=== PATIENT | female | born 1930 | race Caucasian/White ===

== ENCOUNTER 2017-02-14 11:05 | Inpatient (IN) | payer MEDICARE, BC ==
[2017-02-14] MEDS ORDERED: Docusate Sodium 100 MG Cap PO PRN (11:11)
[2017-02-14] MEDS ORDERED: Acetaminophen 325 MG Tab PO PRN (11:11)
[2017-02-14] MEDS ORDERED: Magnesium Hydroxide 400 MG/5 ML Susp 30 ML Cup PO PRN (11:11)
[2017-02-14] MEDS ORDERED: Sodium Chloride 0.9% 10 ML Syringe FLUSH PRN (11:11)
[2017-02-14] MEDS ORDERED: Temazepam 15 MG Cap PO PRN (11:11)
[2017-02-14] MEDS ORDERED: Iopamidol 755 Mg/ML 100 ML Bottle IVPUSH ONE (11:54)
[2017-02-14] MEDS ORDERED: Polyvinyl Alcohol 1.4% Ophth Soln 15 ML Bottle EYEBOTH PRN (12:18)
[2017-02-14 12:27] LABS: CHLORIDE,CL 103 mEq/L (98-106); SODIUM,NA 139 mEq/L (136-145)
[2017-02-14] MEDS: Enoxaparin 30 MG/0.3 ML Syringe SUBCUT SCH (13:45)
[2017-02-15] MEDS: Levothyroxine 50 MCG Tab PO SCH (07:40)
[2017-02-15] MEDS: Enoxaparin 30 MG/0.3 ML Syringe SUBCUT SCH (07:41)
[2017-02-15] MEDS: Losartan 25 MG Tab PO SCH (07:42)
[2017-02-15] MEDS: Atenolol 50 MG Tab PO SCH (07:44)
[2017-02-15] MEDS ORDERED: Aspirin 325 MG Tab.EC PO SCH (08:00)
[2017-02-15] MEDS ORDERED: Aspirin/Dipyridamole 200-25 MG Cap.ER PO SCH (14:00)
[2017-02-16] MEDS: Levothyroxine 50 MCG Tab PO SCH (06:53)
--- NOTE | 2017-02-16 07:13 | PN ---
DATE: 02/15/2017 This is an elderly female, who came in yesterday ataxic with a diagnosis of question CVA, TIA. 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 CTA looked okay and little bit of blockage, so I suspect that she has maybe got little thromboembolic phenomenon. I am going to start her on a little bit of Aggrenox just once a day. Keep her at physical therapy. Otherwise, exam today, neck was supple. Chest clear. Cardiac regular. MARQUES/ROSANNA /[id number]
[2017-02-16] MEDS ORDERED: Aspirin/Dipyridamole 200-25 MG Cap.ER PO SCH (08:00)
[2017-02-16] MEDS: Losartan 25 MG Tab PO SCH (08:03)
[2017-02-16] MEDS: Atenolol 50 MG Tab PO SCH (08:04)
[2017-02-16] MEDS: Enoxaparin 30 MG/0.3 ML Syringe SUBCUT SCH (08:04)
[2017-02-16 11:56] VITALS: BP 141/58
--- NOTE | 2017-02-19 07:58 | DISCH ---
HOSPITAL COURSE: This is an 87-year-old white female, who came in with ataxia, probable TIA. She was started on Lovenox, responded fairly nicely. At the time of discharge, she was back to normal according to her daughter, still little difficulty with ambulating, but was much improved. I did do a CT of the head which showed old infarcts. CTA looked okay other than some mild carotid plaquing. Lab was basically all normal and she had an elevated TSH, but her T4 was normal, so we will follow that as an outpatient. DISPOSITION: The patient was discharged home. We will see her back 02/20. DISCHARGE MEDICATIONS: Home medications minus the aspirin plus Aggrenox 225 one daily. DISCHARGE DIAGNOSIS: 1. TRANSIENT ISCHEMIC ATTACK. 2. HYPOTHYROIDISM. 3. HYPERTENSION. 4. DEMENTIA. MARQUES/ROSANNA /[id number]
== END 2017-02-16 13:15 | disposition home or self-care (01) | DRG 69 ==
LOC: UNDOADMIN 11:05 → CC.MS 11:05
PROVIDERS: ADMIT General Practice; ATTEND General Practice
DX: G45.9 Transient cerebral ischemic attack, unspecified (principal); E03.9 Hypothyroidism, unspecified; I10 Essential (primary) hypertension; F03.90 Unspecified dementia, unspecified severity, without behavioral disturbance, psychotic disturbance, mood disturbance, and anxiety; R27.0 Ataxia, unspecified; Z88.1 Allergy status to other antibiotic agents; Z88.2 Allergy status to sulfonamides; Z88.8 Allergy status to other drugs, medicaments and biological substances; Z91.040 Latex allergy status; Z79.82 Long term (current) use of aspirin; Z79.899 Other long term (current) drug therapy; E78.5 Hyperlipidemia, unspecified; M19.90 Unspecified osteoarthritis, unspecified site; I50.9 Heart failure, unspecified; Z86.73 Personal history of transient ischemic attack (TIA), and cerebral infarction without residual deficits
CPT/HCPCS: 36415; 70450; 70496; 70498; 71020; 80053; 81001; 83735; 83880; 84439; 84443; 85025; 85379; 85610; 86140; 93005; 97110-GP; 97161-GP; A9270-GY; J1650; Q9967

== ENCOUNTER 2017-08-19 12:40 | Observation (INO) | payer MEDICARE, BC ==
[2017-08-19 13:51] LABS: CHLORIDE,CL 99 mEq/L (98-106); SODIUM,NA 136 mEq/L (136-145)
--- NOTE | 2017-08-19 14:38 | EDM.PDOC ---
ED HPI GENERAL MEDICAL PROBLEM - General Chief Complaint: General Stated Complaint: lightheaded, vomiting Time Seen by Provider: 08/19/17 13:30 Source of Information: Reports: Patient, Family (daughter) History Limitations: Reports: No Limitations - History of Present Illness INITIAL COMMENTS - FREE TEXT/NARRATIVE: Kassandra is an 87 yo female who presents to the ER for concerns of lightheaded/ dizziness. Her daughter is present with her and states she had an uneventful morning and was feeling well. They had people over for breakfast around 10 am and after they left around 1130 she went to help Kassandra to the restroom. She started complaining of dizziness and became weak. She was able to sit her down but then started to vomit. She admits to symptoms similar in the past and ended up having to go to physical therapy. She states if she holds her head still she doesn't get the dizziness. She denies any neurological symptoms. No blurry vision, headaches, etc... She states currently she does not feel nauseated unless she moves her head. Daughter is concerned as she doesn't feel she is able to help her at home. daughter also states she has a chronic history of UTI' s that they are usually unaware of that she has, so she has been on daily Macrobid. Onset: Today, Sudden Onset Date: 08/19/17 Onset Time: 11:30 Duration: Waxing/Waning Location: Reports: Head, Generalized Associated Symptoms: Reports: Nausea/Vomiting, Weakness. Denies: Chest Pain, Cough, cough w sputum, Headaches, Seizure, Syncope - Related Data Allergies Allergy/AdvReac Type Severity Reaction Status Date / Time doxazosin [From Cardura] Allergy Unknown Rash Verified 05/24/17 13:07 latex Allergy Rash Verified 05/24/17 13:07 morphine Allergy Rash Verified 05/24/17 13:07 sulfamethoxazole Allergy Rash Verified 05/24/17 13:07 [From Bactrim] trimethoprim [From Bactrim] Allergy Rash Verified 05/24/17 13:07 Home Meds: Home Meds Acetaminophen [Tylenol Extra Strength] 1 tab PO Q6HR PRN 03/28/14 [History] Carboxymethylcellulose Sodium [Refresh Tears 0.5%] 1 drop OP DAILY PRN 03/28/14 [History] Cholecalciferol (Vitamin D3) [Vitamin D3] 2,000 units PO DAILY 03/28/14 [History ] Levothyroxine 100 mcg PO DAILY 03/28/14 [History] Losartan [Cozaar] 100 mg PO DAILY 03/28/14 [History] Vit A/Vit C/Vit E/Zinc/Copper [Preservision] 1 tab PO DAILY 03/28/14 [History] Aspirin/Dipyridamole [Aggrenox 200-25 MG] 1 cap PO DAILY #30 cap.er 02/16/17 [Rx ] Amiodarone [Cordarone] 100 mg PO DAILY 08/19/17 [History] Docusate Sodium [Colace] 100 mg PO BID 08/19/17 [History] Nitrofurantoin [place]/Macrocryst [Macrobid] 100 mg PO DAILY 08/19/17 [History] hydrALAZINE [Apresoline] 25 mg PO BID 08/19/17 [History] Past Medical History HEENT History: Reports: Cataract, Impaired Vision Respiratory History: Reports: None Other Gastrointestinal History: LACTOSE INTOLERANT Genitourinary History: Reports: UTI, Recurrent Musculoskeletal History: Reports: Arthritis, Osteoarthritis Neurological History: Reports: CVA - Past Surgical History Other HEENT Surgeries/Procedures: HYSTERECTOMY. CABBAGE X3 2 YEARS AGO GI Surgical History: Reports: None Neurological Surgical History: Reports: None Musculoskeletal Surgical History: Reports: Knee Replacement Social & Family History - Family History Hematologic: Reports: None - Tobacco Use Smoking Status *Q: Never Smoker Second Hand Smoke Exposure: Yes - Caffeine Use Caffeine Use: Reports: Coffee - Alcohol Use Days Per Week of Alcohol Use: 0 - Recreational Drug Use Recreational Drug Use: No ED ROS GENERAL - Review of Systems Review Of Systems: See Below Constitutional: Reports: Weakness. Denies: Fever, Chills, Decreased Appetite HEENT: Reports: Vertigo. Denies: Ear Pain, Sinus Problem, Vision Change Respiratory: Reports: No Symptoms Cardiovascular: Reports: Lightheadedness. Denies: Chest Pain, Palpitations, Syncope GI/Abdominal: Reports: No Symptoms : Reports: No Symptoms Neurological: Reports: Dizziness, Difficulty Walking. Denies: Confusion, Headache, Paresthesia, Seizure, Syncope, Trouble Speaking, Change in Speech Psychiatric: Reports: No Symptoms ED EXAM, GENERAL - Physical Exam Exam: See Below Exam Limited By: No Limitations General Appearance: Alert, Mild Distress Eye Exam: Bilateral Eye: EOMI, Normal Inspection, PERRL Ears: Normal External Exam, Normal Canal, Hearing Grossly Normal, Normal TMs Ear Exam: Right Ear: Other (Positive [place] Montes-pike maneuver test R>L) Nose: Normal Inspection, Normal Mucosa, No Blood Throat/Mouth: Normal Inspection, Normal Lips, Normal Teeth, Normal Gums, Normal Oropharynx, Normal Voice, No Airway Compromise Head: Atraumatic, Normocephalic Neck: Normal Inspection, Supple, Non-Tender, Full Range of Motion Respiratory/Chest: No Respiratory Distress, Lungs Clear, Normal Breath Sounds, No Accessory Muscle Use Cardiovascular: Normal Peripheral Pulses, Regular Rate, Rhythm, No Edema, No Murmur GI/Abdominal: Normal Bowel Sounds, Soft, Non-Tender, No Organomegaly, No Distention, No Mass Extremities: Normal Inspection, No Pedal Edema, Normal Capillary Refill Neurological: Alert, Oriented, CN II-XII Intact, Normal Cognition, No Motor/ Sensory Deficits Psychiatric: Normal Affect, Normal Mood Skin Exam: Warm, Dry, Intact, Normal Color, No Rash EKG INTERPRETATION EKG Date: 08/19/17 Rhythm: NSR Comparison: NA - No Prior EKG Course - Vital Signs Last Recorded V/S: Last Vital Signs Temp 96.1 F 08/19/17 14:19 Pulse 70 08/19/17 14:19 Resp 18 08/19/17 14:19 BP 161/62 H 08/19/17 14:19 Pulse Ox 98 08/19/17 14:19 - Orders/Labs/Meds Orders: Active Orders 24 hr Category Date Time Status UA W/MICROSCOPIC [URIN] Stat Lab 08/19/17 13:08 Uncollected Labs: Laboratory Tests 08/19/17 08/19/17 Range/Units 13:15 13:15 WBC 9.3 (5.0-10.0) 10^3/uL RBC 3.58 L (4.00-5.50) 10^6/uL Hgb 11.6 L (12.0-16.0) g/dL Hct 34.1 L (37.0-47.0) % MCV 95.3 H (82.0-94.0) fL MCH 32.4 H (27.0-32.0) pg MCHC 34.0 (33.0-38.0) g/dL RDW Coeff of Gina 14.1 (11.0-15.0) % Plt Count 231 (150-400) 10^3/uL Neut % (Auto) 52.1 (35-85) % Lymph % (Auto) 35.1 (10-55) % [place] % (Auto) 11.3 (0-16) % Eos % (Auto) 1.3 (0-5) % Baso % (Auto) 0.2 (0-3) % Neut # (Auto) 4.86 (1.80-7.00) 10^3/uL Lymph # (Auto) 3.28 (1.00-4.80) 10^3/uL [place] # (Auto) 1.06 H (0.00-0.80) 10^3/uL Eos # (Auto) 0.12 (0.00-0.45) 10^3/uL Baso # (Auto) 0.02 10^3/uL Sodium 136 (136-145) mEq/L Potassium 4.0 (3.5-5.0) mEq/L Chloride 99 (98-106) mEq/L Carbon Dioxide 24 (21-32) mmol/L BUN 24 H (7-18) mg/dL Creatinine 1.5 H (0.6-1.0) mg/dL Est Cr Clr Drug Dosing 21.86 mL/min Estimated GFR (MDRD) 33 L (>=60) mL/min Glucose 108 H (75-99) mg/dL Calcium 9.4 (8.4-10.1) mg/dL Magnesium 2.2 (1.8-2.4) mg/dL Total Bilirubin 0.4 (0.0-1.0) mg/dL AST 17 (15-37) U/L ALT 22 (12-78) U/L Alkaline Phosphatase 48 (46-116) U/L C-Reactive Protein < 0.2 L (0.2-0.8) mg/dL Total Protein 6.9 (6.4-8.2) g/dL Albumin 3.6 (3.4-5.0) g/dL Amylase 159 H (25-115) U/L Departure - Departure Time of Disposition: 14:42 Disposition: Refer to Observation Clinical Impression: Elevated amylase Benign paroxysmal positional vertigo Qualifiers: Laterality: right Qualified Code(s): H81.11 - Benign paroxysmal vertigo, right ear - Discharge Information - Problem List & Annotations (1) Benign paroxysmal positional vertigo SNOMED Code(s): 695453118 Code(s): H81.10 - BENIGN PAROXYSMAL VERTIGO, UNSPECIFIED EAR Status: Acute Current Visit: Yes Qualifiers: Laterality: right Qualified Code(s): H81.11 - Benign paroxysmal vertigo, right ear (2) Elevated amylase SNOMED Code(s): 368319779 Code(s): R74.8 - ABNORMAL LEVELS OF OTHER SERUM ENZYMES Status: Acute Current Visit: Yes - Problem List Review Problem List Initiated/Reviewed/Updated: Yes - My Orders Last 24 Hours: My Active Orders 08/19/17 13:08 UA W/MICROSCOPIC [URIN] Stat - Assessment/Plan Admission H&P: Please use this note as an admission H&P Last 24 Hours: My Active Orders 08/19/17 13:08 UA W/MICROSCOPIC [URIN] Stat Plan: Will admit to Dr. Snell's services under observation. Dr. Snell aware of admission. Will start IV fluids, meclizine and zofran. PT to evaluate and treat with canalith repositioning in am. Will put on continuous telemetry. Kassandra and her daughter verbalized understanding. Will obtain Lipase d/t mildly elevated amylase.
[2017-08-19] MEDS ORDERED: Ondansetron 4 MG/2 ML SDV IV PRN (14:59)
[2017-08-19] MEDS ORDERED: Ondansetron 4 MG Tab.DIS PO PRN (14:59)
[2017-08-19] MEDS ORDERED: Acetaminophen 325 MG Tab PO PRN (14:59)
[2017-08-19] MEDS ORDERED: DOCUSATE SODIUM 100 MG PO PRN (14:59)
[2017-08-19] MEDS ORDERED: Temazepam 15 MG Cap PO PRN (14:59)
[2017-08-19] MEDS ORDERED: Meclizine 12.5 MG Tab PO PRN (14:59)
[2017-08-19] MEDS: Sodium Chloride 0.9% 1,000 ML IV SCH (15:56)
[2017-08-19] MEDS: HYDRALAZINE 25 MG PO SCH (19:31)
[2017-08-19] MEDS: Enoxaparin 30 MG/0.3 ML Syringe SUBCUT SCH (19:32)
[2017-08-20] MEDS: Sodium Chloride 0.9% 1,000 ML IV SCH ×2 (01:26→17:34)
[2017-08-20] MEDS: DIPYRIDAMOLE PO SCH (07:28)
[2017-08-20] MEDS: HYDRALAZINE 25 MG PO SCH ×2 (07:28→20:01)
[2017-08-20] MEDS: ASPIRIN PO SCH (07:28)
[2017-08-20] MEDS: AMIODARONE 200 MG PO SCH (07:28)
[2017-08-20] MEDS: LOSARTAN 100 MG PO SCH (07:29)
[2017-08-20] MEDS ORDERED: Simvastatin 20 MG Tab PO SCH (08:00)
[2017-08-20] MEDS: MACROCRYSTALLINE PO SCH (08:26)
[2017-08-20] MEDS: NITROFURANTOIN MONOHYDRATE PO SCH (08:26)
[2017-08-20] MEDS: LEVOTHYROXINE 100 MCG PO SCH (08:26)
[2017-08-20] MEDS ORDERED: ROSUVASTATIN 5 MG PO SCH (08:53)
[2017-08-20] MEDS: Enoxaparin 30 MG/0.3 ML Syringe SUBCUT SCH (20:01)
--- NOTE | 2017-08-20 21:01 | PCM.PN ---
- General Info Date of Service: 08/20/17 Admission Dx/Problem (Free Text): BPPV Functional Status: Reports: Pain Controlled, Tolerating Diet, Ambulating - Review of Systems General: Reports: Weakness. Denies: Fever, Fatigue HEENT: Denies: Ear Pain, Sinus Congestion, Rhinitis Pulmonary: Denies: Shortness of Breath, Cough, Sputum Cardiovascular: Denies: Chest Pain, Edema, Lightheadedness Gastrointestinal: Reports: Decreased Appetite, Nausea. Denies: Vomiting Genitourinary: Reports: No Symptoms Musculoskeletal: Reports: No Symptoms Skin: Reports: No Symptoms Neurological: Reports: Dizziness - Patient Data Vitals - Most Recent: Last Vital Signs Temp 97.8 F 08/20/17 20:00 Pulse 78 08/20/17 20:00 Resp 18 08/20/17 20:00 BP 156/70 H 08/20/17 20:01 Pulse Ox 98 08/20/17 20:00 Weight - Most Recent: 160 lb I&O - Last 24 Hours: Intake & Output 08/20/17 08/20/17 08/20/17 06:59 14:59 22:59 Intake Total 713 1000 Balance 713 1000 Lab Results Last 24 Hours: Laboratory Results - last 24 hr 08/20/17 08/20/17 08/20/17 Range/Units 07:00 07:00 09:02 WBC 6.7 (5.0-10.0) 10^3/uL RBC 3.54 L (4.00-5.50) 10^6/uL Hgb 11.4 L (12.0-16.0) g/dL Hct 34.2 L (37.0-47.0) % MCV 96.6 H (82.0-94.0) fL MCH 32.2 H (27.0-32.0) pg MCHC 33.3 (33.0-38.0) g/dL RDW Coeff of Gina 13.7 (11.0-15.0) % Plt Count 205 (150-400) 10^3/uL Neut % (Auto) 60.8 (35-85) % Lymph % (Auto) 29.3 (10-55) % [place] % (Auto) 8.4 (0-16) % Eos % (Auto) 1.2 (0-5) % Baso % (Auto) 0.3 (0-3) % Neut # (Auto) 4.04 (1.80-7.00) 10^3/uL Lymph # (Auto) 1.95 (1.00-4.80) 10^3/uL [place] # (Auto) 0.56 (0.00-0.80) 10^3/uL Eos # (Auto) 0.08 (0.00-0.45) 10^3/uL Baso # (Auto) 0.02 10^3/uL Sodium 138 (136-145) mEq/L Potassium 3.9 (3.5-5.0) mEq/L Chloride 103 (98-106) mEq/L Carbon Dioxide 25 (21-32) mmol/L BUN 22 H (7-18) mg/dL Creatinine 1.4 H (0.6-1.0) mg/dL Est Cr Clr Drug Dosing 23.42 mL/min Estimated GFR (MDRD) 36 L (>=60) mL/min Glucose 98 (75-99) mg/dL Calcium 8.8 (8.4-10.1) mg/dL Amylase 118 H (25-115) U/L Urine Color Yellow (YELLOW) Urine Appearance Clear (CLEAR) Urine pH 7.0 (4.5-8.0) Ur Specific [place] 1.015 (1.003-1.020) Urine Protein Negative (NEGATIVE) mg/dL Urine Glucose (UA) Negative (NEGATIVE) mg/dL Urine Ketones Negative (NEGATIVE) mg/dL Urine Occult Blood Negative (NEGATIVE) Urine Nitrite Negative (NEGATIVE) Urine Bilirubin Negative (NEGATIVE) Urine Urobilinogen 0.2 (0.2-1.0) EU/dL Ur Leukocyte Esterase Negative (NEGATIVE) Urine RBC Not seen (0-5) /HPF Urine WBC 0-5 (0-5) /HPF Ur Squamous Epith Cells Occasional H (NOT SEEN) /HPF Med Orders - Current: Current Medications Acetaminophen (Tylenol) 650 mg PO Q4H PRN PRN Reason: Pain (Mild 1-3)/fever Amiodarone HCl (Cordarone) 100 mg PO DAILY [facility] Last Admin: 08/20/17 07:28 Dose: 100 mg Dipyridamole/Aspirin (Aggrenox 200-25 Mg) 1 cap PO DAILY [facility] Last Admin: 08/20/17 07:28 Dose: 1 cap Docusate Sodium (Colace) 100 mg PO BID PRN PRN Reason: Constipation Enoxaparin Sodium (Lovenox) 30 mg SUBCUT BEDTIME [facility] Last Admin: 08/20/17 20:01 Dose: 30 mg Hydralazine HCl (Apresoline) 25 mg PO BID [facility] Last Admin: 08/20/17 20:01 Dose: 25 mg Sodium Chloride (Normal Saline) 1,000 mls @ 75 mls/hr IV ASDIRECTED [facility] Last Admin: 08/20/17 17:34 Dose: 75 mls/hr Levothyroxine Sodium (Synthroid) 100 mcg PO ACBREAKFAST [facility] Last Admin: 08/20/17 08:26 Dose: 100 mcg Losartan Potassium (Cozaar) 100 mg PO DAILY [facility] Last Admin: 08/20/17 07:29 Dose: 100 mg Meclizine HCl (Antivert) 25 mg PO Q6H PRN PRN Reason: Dizziness Last Admin: 08/19/17 15:56 Dose: 25 mg Nitrofurantoin Macrocrystals (Macrobid) 100 mg PO DAILY [facility] Last Admin: 08/20/17 08:26 Dose: 100 mg Ptom - Rosuvastatin (5mg Tab) 0 each PO DAILY [facility] Ondansetron HCl (Zofran) 4 mg IV Q4H PRN PRN Reason: Nausea/Vomiting Ondansetron HCl (Zofran Odt) 4 mg PO Q4H PRN PRN Reason: nausea, able to take PO Temazepam (Restoril) 15 mg PO BEDTIME PRN PRN Reason: Sleep Discontinued Medications Simvastatin (Zocor) 20 mg PO DAILY [facility] Last Admin: 08/20/17 08:57 Dose: Not Given - Exam General: Alert, Oriented (person and place) HEENT: Mucous Membr. Moist/[place] Neck: Supple Lungs: Clear to Auscultation, Normal Respiratory Effort Cardiovascular: Regular Rate, Regular Rhythm GI/Abdominal Exam: Normal Bowel Sounds, Soft, Non-Tender Extremities: Normal Inspection, No Pedal Edema Skin: Warm, Dry Neurological: No New Focal Deficit - Problem List & Annotations (1) Benign paroxysmal positional vertigo SNOMED Code(s): 344274823 Code(s): H81.10 - BENIGN PAROXYSMAL VERTIGO, UNSPECIFIED EAR Status: Acute Priority: High Current Visit: Yes Qualifiers: Laterality: right Qualified Code(s): H81.11 - Benign paroxysmal vertigo, right ear (2) Dementia SNOMED Code(s): 33115336 Code(s): F03.90 - UNSPECIFIED DEMENTIA WITHOUT BEHAVIORAL DISTURBANCE Status: Chronic Priority: High Current Visit: Yes - Problem List Review Problem List Initiated/Reviewed/Updated: Yes - Assessment Assessment:: BPPV Dementia - Plan Plan:: Patient doing better today. Does note mild dizziness with head movements and getting up to the bathroom but daughter states not nearly as severe as yesterday. She has not had any vomiting this am. Not eating much for breakfast this am, admits to mild nausea but daughter relates she does not tolerate much for breakfast usually and eats over a 90 minute period. Labs normal this am. Will proceed with canalith repositioning this am with PT. IF tolerates and improves, will discharge in am.
[2017-08-21] MEDS: LEVOTHYROXINE 100 MCG PO SCH (06:37)
[2017-08-21] MEDS: LOSARTAN 100 MG PO SCH (07:35)
[2017-08-21] MEDS: ASPIRIN PO SCH (07:36)
[2017-08-21] MEDS: MACROCRYSTALLINE PO SCH (07:36)
[2017-08-21] MEDS: AMIODARONE 200 MG PO SCH (07:36)
[2017-08-21] MEDS: DIPYRIDAMOLE PO SCH (07:36)
[2017-08-21] MEDS: NITROFURANTOIN MONOHYDRATE PO SCH (07:36)
[2017-08-21] MEDS: HYDRALAZINE 25 MG PO SCH (07:37)
[2017-08-21 08:42] VITALS: BP 143/60
--- NOTE | 2017-08-21 21:47 | PCM.DCSUM1 ---
Discharge Summary - Hospital Course Free Text/Narrative:: Patient presented to ED with increased dizziness, vomiting. Patient had been fine throughout the morning, ate breakfast and was doing well. AFter their company had left, her daughter was assisting her to the bathroom when she became very dizzy and started vomiting. Has had a history of vertigo in the past. Symptoms persisted so felt she needed work up. Labs done in the ER essentially negative. - Discharge Data Discharge Date: 08/21/17 Discharge Disposition: Home, Self-Care 01 Condition: Good - Discharge Diagnosis/Problem(s) (1) Benign paroxysmal positional vertigo SNOMED Code(s): 322134877 ICD Code: H81.10 - BENIGN PAROXYSMAL VERTIGO, UNSPECIFIED EAR Status: Acute Priority: High Qualifiers: Laterality: right Qualified Code(s): H81.11 - Benign paroxysmal vertigo, right ear (2) Dementia SNOMED Code(s): 29861170 ICD Code: F03.90 - UNSPECIFIED DEMENTIA WITHOUT BEHAVIORAL DISTURBANCE Status: Chronic Priority: High - Patient Summary/Data Complications: none Hospital Course: Patient had uneventful stay. She continued to have the dizziness and vomiting during the first evening of admission. Did settle through the night and felt better by morning. Patient did have canalith repositioning done by PT and had improvement of her symptoms. Did refuse to wear the soft collar after procedure but overall has continued to do well. Appetite did improve, eating well. Ambulating per her norm with the walker and her daughter at her side. - Patient Instructions Diet: Usual Diet as Tolerated Activity: As Tolerated - Discharge Plan Prescriptions/Med Rec: Meclizine [Antivert] 25 mg PO Q6H PRN #30 tablet PRN Reason: Dizziness Home Medications: Home Meds Acetaminophen [Tylenol Extra Strength] 1 tab PO Q6HR PRN 03/28/14 [History] Carboxymethylcellulose Sodium [Refresh Tears 0.5%] 1 drop OP DAILY PRN 03/28/14 [History] Cholecalciferol (Vitamin D3) [Vitamin D3] 2,000 units PO DAILY 03/28/14 [History ] Levothyroxine 100 mcg PO DAILY 03/28/14 [History] Losartan [Cozaar] 100 mg PO DAILY 03/28/14 [History] Vit A/Vit C/Vit E/Zinc/Copper [Preservision] 1 tab PO DAILY 03/28/14 [History] Aspirin/Dipyridamole [Aggrenox 200-25 MG] 1 cap PO DAILY #30 cap.er 02/16/17 [Rx ] Amiodarone [Cordarone] 100 mg PO DAILY 08/19/17 [History] Docusate Sodium [Colace] 100 mg PO BID 08/19/17 [History] Nitrofurantoin [place]/Macrocryst [Macrobid] 100 mg PO DAILY 08/19/17 [History] Rosuvastatin Calcium 5 mg PO BEDTIME 08/19/17 [History] hydrALAZINE [Apresoline] 25 mg PO BID 08/19/17 [History] Meclizine [Antivert] 25 mg PO Q6H PRN #30 tablet 08/21/17 [Rx] Patient Handouts: Benign Positional Vertigo Forms: ED Department Discharge Referrals: Sarmad Burroughs MD [Primary Care Provider] - (Dr. Burroughs in 10 days ) - Discharge Summary/Plan Comment DC Time >30 min.: No Discharge Summary/Plan Comment: Discharge home Will continue to use Meclizine as needed Daughter assists with care - General Info Date of Service: 08/21/17 Admission Dx/Problem (Free Text: BPPV Functional Status: Reports: Pain Controlled, Tolerating Diet, Ambulating - Review of Systems General: Denies: Fever, Weakness, Fatigue, Malaise HEENT: Reports: No Symptoms Pulmonary: Denies: Shortness of Breath, Cough, Wheezing Cardiovascular: Denies: Chest Pain, Edema, Lightheadedness Gastrointestinal: Denies: Abdominal Pain, Nausea, Vomiting Genitourinary: Reports: No Symptoms Musculoskeletal: Reports: No Symptoms Neurological: Reports: Confusion, Dizziness Psychiatric: Reports: Confusion - Patient Data Vitals - Most Recent: Last Vital Signs Temp 97.5 F 08/21/17 08:00 Pulse 82 08/21/17 08:00 Resp 16 08/21/17 08:00 BP 143/60 H 08/21/17 08:00 Pulse Ox 95 08/21/17 08:00 Weight - Most Recent: 160 lb Lab Results - Last 24 hrs: Laboratory Results - last 24 hr 08/19/17 08/21/17 Range/Units 18:30 07:25 Sodium 138 (136-145) mEq/L Potassium 3.8 (3.5-5.0) mEq/L Chloride 104 (98-106) mEq/L Carbon Dioxide 25 (21-32) mmol/L BUN 18 (7-18) mg/dL Creatinine 1.2 H (0.6-1.0) mg/dL Est Cr Clr Drug Dosing 27.32 mL/min Estimated GFR (MDRD) 42 L (>=60) mL/min Glucose 98 (75-99) mg/dL Calcium 8.5 (8.4-10.1) mg/dL Amylase 108 (25-115) U/L Lipase 16 (11-82) U/L Med Orders - Current: Current Medications Discontinued Medications Acetaminophen (Tylenol) 650 mg PO Q4H PRN PRN Reason: Pain (Mild 1-3)/fever Amiodarone HCl (Cordarone) 100 mg PO DAILY [facility] Last Admin: 08/21/17 07:36 Dose: 100 mg Dipyridamole/Aspirin (Aggrenox 200-25 Mg) 1 cap PO DAILY [facility] Last Admin: 08/21/17 07:36 Dose: 1 cap Docusate Sodium (Colace) 100 mg PO BID PRN PRN Reason: Constipation Enoxaparin Sodium (Lovenox) 30 mg SUBCUT BEDTIME [facility] Last Admin: 08/20/17 20:01 Dose: 30 mg Hydralazine HCl (Apresoline) 25 mg PO BID [facility] Last Admin: 08/21/17 07:37 Dose: 25 mg Sodium Chloride (Normal Saline) 1,000 mls @ 75 mls/hr IV ASDIRECTED [facility] Last Admin: 08/20/17 17:34 Dose: 75 mls/hr Levothyroxine Sodium (Synthroid) 100 mcg PO ACBREAKFAST [facility] Last Admin: 08/21/17 06:37 Dose: 100 mcg Losartan Potassium (Cozaar) 100 mg PO DAILY [facility] Last Admin: 08/21/17 07:35 Dose: 100 mg Meclizine HCl (Antivert) 25 mg PO Q6H PRN PRN Reason: Dizziness Last Admin: 08/19/17 15:56 Dose: 25 mg Nitrofurantoin Macrocrystals (Macrobid) 100 mg PO DAILY [facility] Last Admin: 08/21/17 07:36 Dose: 100 mg Ptom - Rosuvastatin (5mg Tab) 0 each PO DAILY [facility] Last Admin: 08/21/17 07:36 Dose: 1 each Ondansetron HCl (Zofran) 4 mg IV Q4H PRN PRN Reason: Nausea/Vomiting Ondansetron HCl (Zofran Odt) 4 mg PO Q4H PRN PRN Reason: nausea, able to take PO Simvastatin (Zocor) 20 mg PO DAILY [facility] Last Admin: 08/20/17 08:57 Dose: Not Given Temazepam (Restoril) 15 mg PO BEDTIME PRN PRN Reason: Sleep - Exam General: Reports: Alert, Oriented HEENT: Reports: Mucous Membr. Moist/[place] Neck: Reports: Supple Lungs: Reports: Clear to Auscultation, Normal Respiratory Effort Cardiovascular: Reports: Regular Rate, Regular Rhythm GI/Abdominal Exam: Normal Bowel Sounds, Soft, Non-Tender Extremities: Normal Inspection, No Pedal Edema Skin: Reports: Warm, Dry Neurological: Reports: No New Focal Deficit *Q Meaningful Use (DIS) - VTE *Q VTE Criteria *Q: - Stroke *Q Stroke Criteria *Q: - AMI *Q AMI Criteria *Q:
== END 2017-08-21 09:40 | disposition home or self-care (01) ==
LOC: CC.ED 12:40 → CC.MS 14:08 → UNDOADMOB 14:08 → CC.MS 14:59
PROVIDERS: ADMIT Physician Assistant Medical; ATTEND Family Medicine
DX: H81.11 Benign paroxysmal vertigo, right ear (principal); F03.90 Unspecified dementia, unspecified severity, without behavioral disturbance, psychotic disturbance, mood disturbance, and anxiety; R74.8 Abnormal levels of other serum enzymes; Z79.82 Long term (current) use of aspirin; Z79.899 Other long term (current) drug therapy; Z88.1 Allergy status to other antibiotic agents; Z88.2 Allergy status to sulfonamides; Z88.8 Allergy status to other drugs, medicaments and biological substances; Z91.040 Latex allergy status
CPT/HCPCS: 36415; 80048; 80053; 81001; 82150; 83690; 83735; 85025; 86140; 93005; 96360; 96361; 96372; 97112; 97161; 99285; A9270; G0378; J1650; J7030; 93010; 99217; 99220; 99225

== ENCOUNTER 2017-09-26 14:25 | Emergency (ER) | payer MEDICARE, BC ==
[2017-09-26 15:55] LABS: CHLORIDE,CL 100 mEq/L (98-106); SODIUM,NA 136 mEq/L (136-145)
--- NOTE | 2017-09-26 16:00 | EDM.PDOC ---
ED HPI GENERAL MEDICAL PROBLEM - General Chief Complaint: Chest Pain Stated Complaint: chest pain Time Seen by Provider: 09/26/17 15:30 Source of Information: Reports: EMS, Family, RN History Limitations: Reports: Altered Mental Status - History of Present Illness INITIAL COMMENTS - FREE TEXT/NARRATIVE: Daughter states that she has not been responding as well as normal. Was more confused today. Looked pale and cool when she was trying to lay her down about 1300 today. Not as talkative as normal. Noted that her urine has been more cloudy and she does have recurrent UTI in the past. Is on macrobid prophylactically. Did put her had on her chest at home and answered yes when her daughter asked if it hurt. When arriving here she denies any pain but when the chest wall was initially palpated she did complain of increase in chest wall pain. No bruising noted. Daughter denies any recent falls. She has not noted any SOB and she denies it. Pt is confused times 3 at this time. Has not noted any fever with it. Onset: Today chest Pain Score (Numeric/FACES): 2 - Related Data Allergies Allergy/AdvReac Type Severity Reaction Status Date / Time doxazosin [From Cardura] Allergy Unknown Rash Verified 09/26/17 15:14 latex Allergy Rash Verified 09/26/17 15:14 morphine Allergy Rash Verified 09/26/17 15:14 sulfamethoxazole Allergy Rash Verified 09/26/17 15:14 [From Bactrim] trimethoprim [From Bactrim] Allergy Rash Verified 09/26/17 15:14 Home Meds: Home Meds Acetaminophen [Tylenol Extra Strength] 1 tab PO Q6HR PRN 03/28/14 [History] Carboxymethylcellulose Sodium [Refresh Tears 0.5%] 1 drop OP ASDIRECTED PRN [History] Cholecalciferol (Vitamin D3) [Vitamin D3] 2,000 units PO DAILY 03/28/14 [History ] Levothyroxine 100 mcg PO DAILY 03/28/14 [History] Vit A/Vit C/Vit E/Zinc/Copper [Preservision] 1 tab PO DAILY 03/28/14 [History] Aspirin/Dipyridamole [Aggrenox 200-25 MG] 1 cap PO DAILY #30 cap.er 02/16/17 [Rx ] Docusate Sodium [Colace] 100 mg PO BID 01/07/18 [History] Nitrofurantoin Logan/Macrocryst [Macrobid] 100 mg PO DAILY 08/19/17 [History] hydrALAZINE [Apresoline] 25 mg PO BID 08/19/17 [History] Meclizine [Antivert] 25 mg PO Q6H PRN #30 tablet 08/21/17 [Rx] L Acidophil/B Lactis/B Longum [Florajen3] 460 mg PO DAILY 09/26/17 [History] cycloSPORINE [Restasis] 1 drop EYEBOTH BID 09/26/17 [History] Past Medical History HEENT History: Reports: Cataract, Impaired Vision Respiratory History: Reports: None Other Gastrointestinal History: LACTOSE INTOLERANT Genitourinary History: Reports: UTI, Recurrent Musculoskeletal History: Reports: Arthritis, Osteoarthritis Neurological History: Reports: CVA - Past Surgical History Other HEENT Surgeries/Procedures: HYSTERECTOMY. CABBAGE X3 2 YEARS AGO GI Surgical History: Reports: None Neurological Surgical History: Reports: None Musculoskeletal Surgical History: Reports: Knee Replacement Social & Family History - Family History Hematologic: Reports: None - Tobacco Use Smoking Status *Q: Never Smoker Second Hand Smoke Exposure: Yes - Caffeine Use Caffeine Use: Reports: Coffee - Alcohol Use Days Per Week of Alcohol Use: 0 - Recreational Drug Use Recreational Drug Use: No ED ROS GENERAL - Review of Systems Review Of Systems: Unable To Obtain (pt is confused. Daughter has provided info in the HPI.) ED EXAM, GENERAL - Physical Exam Exam: See Below Exam Limited By: Altered Mental Status General Appearance: WD/WN, No Apparent Distress Ears: Normal External Exam, Normal Canal, Normal TMs Nose: Normal Inspection Throat/Mouth: Normal Inspection, Normal Oropharynx, No Airway Compromise Head: Atraumatic, Normocephalic Neck: Normal Inspection, Supple, Non-Tender, Full Range of Motion Respiratory/Chest: No Respiratory Distress, Lungs Clear, Normal Breath Sounds Cardiovascular: Normal Peripheral Pulses, Regular Rate, Rhythm, No Edema, Other (Does have chest wall tenderness with any palpation.) GI/Abdominal: Normal Bowel Sounds, Soft, Non-Tender Back Exam: Normal Inspection Extremities: No Pedal Edema, Normal Capillary Refill Neurological: Confused, Disoriented Skin Exam: Warm, Dry Course - Vital Signs Last Recorded V/S: Last Vital Signs Temp 97.2 F 09/26/17 15:09 Pulse 83 09/26/17 15:19 Resp 18 09/26/17 15:09 BP 188/84 H 09/26/17 16:16 Pulse Ox 95 09/26/17 15:19 - Orders/Labs/Meds Orders: Active Orders 24 hr Category Date Time Status Chest 2V [CR] Stat Exams 09/26/17 15:24 Taken CULTURE URINE [RM] Stat Lab 09/26/17 16:11 Received Labs: Laboratory Tests 09/26/17 09/26/17 09/26/17 Range/Units 15:23 15:23 15:23 WBC 6.5 (5.0-10.0) 10^3/uL RBC 3.57 L (4.00-5.50) 10^6/uL Hgb 11.6 L (12.0-16.0) g/dL Hct 34.7 L (37.0-47.0) % MCV 97.2 H (82.0-94.0) fL MCH 32.5 H (27.0-32.0) pg MCHC 33.4 (33.0-38.0) g/dL RDW Coeff of Gina 14.1 (11.0-15.0) % Plt Count 222 (150-400) 10^3/uL Neut % (Auto) 53.1 (35-85) % Lymph % (Auto) 30.8 (10-55) % Logan % (Auto) 13.9 (0-16) % Eos % (Auto) 2.0 (0-5) % Baso % (Auto) 0.2 (0-3) % Neut # (Auto) 3.45 (1.80-7.00) 10^3/uL Lymph # (Auto) 2.00 (1.00-4.80) 10^3/uL Logan # (Auto) 0.90 H (0.00-0.80) 10^3/uL Eos # (Auto) 0.13 (0.00-0.45) 10^3/uL Baso # (Auto) 0.01 10^3/uL PT 10.6 (9.7-12.3) SEC INR 0.98 (0.92-1.18) APTT 26.1 (20.0-45.0) SEC Sodium 136 (136-145) mEq/L Potassium 3.9 (3.5-5.0) mEq/L Chloride 100 (98-106) mEq/L Carbon Dioxide 27 (21-32) mmol/L BUN 27 H (7-18) mg/dL Creatinine 1.4 H (0.6-1.0) mg/dL Est Cr Clr Drug Dosing TNP Estimated GFR (MDRD) 36 L (>=60) mL/min Glucose 125 H D (75-99) mg/dL Calcium 9.4 (8.4-10.1) mg/dL Lactate Dehydrogenase 180 (100-190) U/L Creatine Kinase 38 (21-215) U/L Troponin I < 0.017 (0.00-0.06) ng/mL NT-Pro-B Natriuret Pep 721 (0-1000) pg/mL Urine Color (YELLOW) Urine Appearance (CLEAR) Urine pH (4.5-8.0) Ur Specific Ailey (1.003-1.020) Urine Protein (NEGATIVE) mg/dL Urine Glucose (UA) (NEGATIVE) mg/dL Urine Ketones (NEGATIVE) mg/dL Urine Occult Blood (NEGATIVE) Urine Nitrite (NEGATIVE) Urine Bilirubin (NEGATIVE) Urine Urobilinogen (0.2-1.0) EU/dL Ur Leukocyte Esterase (NEGATIVE) Urine RBC (0-5) /HPF Urine WBC (0-5) /HPF Urine Bacteria (NOT SEEN) /HPF 09/26/17 Range/Units 15:43 WBC (5.0-10.0) 10^3/uL RBC (4.00-5.50) 10^6/uL Hgb (12.0-16.0) g/dL Hct (37.0-47.0) % MCV (82.0-94.0) fL MCH (27.0-32.0) pg MCHC (33.0-38.0) g/dL RDW Coeff of Gina (11.0-15.0) % Plt Count (150-400) 10^3/uL Neut % (Auto) (35-85) % Lymph % (Auto) (10-55) % Logan % (Auto) (0-16) % Eos % (Auto) (0-5) % Baso % (Auto) (0-3) % Neut # (Auto) (1.80-7.00) 10^3/uL Lymph # (Auto) (1.00-4.80) 10^3/uL Logan # (Auto) (0.00-0.80) 10^3/uL Eos # (Auto) (0.00-0.45) 10^3/uL Baso # (Auto) 10^3/uL PT (9.7-12.3) SEC INR (0.92-1.18) APTT (20.0-45.0) SEC Sodium (136-145) mEq/L Potassium (3.5-5.0) mEq/L Chloride (98-106) mEq/L Carbon Dioxide (21-32) mmol/L BUN (7-18) mg/dL Creatinine (0.6-1.0) mg/dL Est Cr Clr Drug Dosing Estimated GFR (MDRD) (>=60) mL/min Glucose (75-99) mg/dL Calcium (8.4-10.1) mg/dL Lactate Dehydrogenase (100-190) U/L Creatine Kinase (21-215) U/L Troponin I (0.00-0.06) ng/mL NT-Pro-B Natriuret Pep (0-1000) pg/mL Urine Color Yellow (YELLOW) Urine Appearance Cloudy (CLEAR) Urine pH 6.0 (4.5-8.0) Ur Specific Ailey >= 1.030 H (1.003-1.020) Urine Protein 30 H (NEGATIVE) mg/dL Urine Glucose (UA) Negative (NEGATIVE) mg/dL Urine Ketones Negative (NEGATIVE) mg/dL Urine Occult Blood Trace-intact H (NEGATIVE) Urine Nitrite Positive H (NEGATIVE) Urine Bilirubin Negative (NEGATIVE) Urine Urobilinogen 0.2 (0.2-1.0) EU/dL Ur Leukocyte Esterase Large H (NEGATIVE) Urine RBC 0-5 (0-5) /HPF Urine WBC >100 H (0-5) /HPF Urine Bacteria Moderate H (NOT SEEN) /HPF - Re-Assessments/Exams Free Text/Narrative Re-Assessment/Exam: 09/26/17 16:27 discussed lab results with daughter. Will start on Cipro 250 bid for the next 10 days and call with urine culture in 48 hours. Departure - Departure Time of Disposition: 16:28 Disposition: Home, Self-Care 01 Condition: Fair Clinical Impression: Anterior chest wall pain UTI (urinary tract infection) Qualifiers: Urinary tract infection type: acute cystitis Hematuria presence: without hematuria Qualified Code(s): N30.00 - Acute cystitis without hematuria Instructions: Urinary Tract Infection, Adult Referrals: Sarmad Burroughs MD [Primary Care Provider] - Forms: ED Department Discharge Additional Instructions: Cipro 250 mg twice a day for 10 days. Will call with culture results in 48 hours if we need to change meds at that time. Push fluids as much as possible Follow up with Dr. Burroughs as needed. - My Orders Last 24 Hours: My Active Orders 09/26/17 15:24 Chest 2V [CR] Stat 09/26/17 16:11 CULTURE URINE [RM] Stat - Assessment/Plan Last 24 Hours: My Active Orders 09/26/17 15:24 Chest 2V [CR] Stat 09/26/17 16:11 CULTURE URINE [RM] Stat
[2017-09-26 16:35] VITALS: BP 179/81
== END 2017-09-26 16:58 | disposition home or self-care (01) ==
LOC: CC.ED 14:25
DX: N30.00 Acute cystitis without hematuria (principal); R07.89 Other chest pain; Z91.040 Latex allergy status; Z88.2 Allergy status to sulfonamides; Z88.8 Allergy status to other drugs, medicaments and biological substances; Z88.5 Allergy status to narcotic agent; Z79.899 Other long term (current) drug therapy; Z79.82 Long term (current) use of aspirin
CPT/HCPCS: 36415; 51701; 71046; 80048; 81001; 82550; 83615; 83880; 84484; 85025; 85610; 85730; 87086; 87088; 87186; 93005; 99285

== ENCOUNTER 2017-09-27 19:00 | Inpatient (IN) | payer MEDICARE, BC ==
--- NOTE | 2017-09-27 20:32 | EDM.PDOC ---
ED HPI GENERAL MEDICAL PROBLEM - General Chief Complaint: Neurological Problem Stated Complaint: lethargy Time Seen by Provider: 09/27/17 19:22 Source of Information: Reports: Family (daughter Rosario) History Limitations: Reports: Altered Mental Status - History of Present Illness INITIAL COMMENTS - FREE TEXT/NARRATIVE: Returned to the ER with complaints of not eating or drinking much for the last 24 hours. Had been seen in the ER by this provider yesterday with UTI. Was discharged home with daughter and oral antibiotics as daughter felt that she could care for her. Today she has not been drinking or eating, not as talkative and more unsteady on her feet. Daughter has not been able to get her afternoon meds in as she refuses to eat or drink anything stating that she " just can't" according to daughter. Has had recurrent UTI in the past. She denies any pain and daughter states that she has not had any complaints at home. No chest pain or SOB with it. Onset: Gradual Duration: Getting Worse Location: Reports: Generalized - Related Data Allergies Allergy/AdvReac Type Severity Reaction Status Date / Time doxazosin [From Cardura] Allergy Unknown Rash Verified 09/27/17 18:16 latex Allergy Rash Verified 09/27/17 18:16 morphine Allergy Rash Verified 09/27/17 18:16 sulfamethoxazole Allergy Rash Verified 09/27/17 18:16 [From Bactrim] trimethoprim [From Bactrim] Allergy Rash Verified 09/27/17 18:16 Home Meds: Home Meds Acetaminophen [Tylenol Extra Strength] 1 tab PO Q6HR PRN 03/28/14 [History] Carboxymethylcellulose Sodium [Refresh Tears 0.5%] 1 drop OP ASDIRECTED PRN [History] Cholecalciferol (Vitamin D3) [Vitamin D3] 2,000 units PO DAILY 03/28/14 [History ] Levothyroxine 100 mcg PO DAILY 03/28/14 [History] Vit A/Vit C/Vit E/Zinc/Copper [Preservision] 1 tab PO DAILY 03/28/14 [History] Aspirin/Dipyridamole [Aggrenox 200-25 MG] 1 cap PO DAILY #30 cap.er 02/16/17 [Rx ] Docusate Sodium [Colace] 100 mg PO BID 08/19/17 [History] hydrALAZINE [Apresoline] 25 mg PO BID 08/19/17 [History] Meclizine [Antivert] 25 mg PO Q6H PRN #30 tablet 08/21/17 [Rx] L Acidophil/B Lactis/B Longum [Florajen3] 460 mg PO DAILY 09/26/17 [History] cycloSPORINE [Restasis] 1 drop EYEBOTH BID 09/26/17 [History] Ciprofloxacin HCl [Cipro] 250 mg PO BID 09/27/17 [History] Past Medical History HEENT History: Reports: Cataract, Impaired Vision Respiratory History: Reports: None Other Gastrointestinal History: LACTOSE INTOLERANT Genitourinary History: Reports: UTI, Recurrent Musculoskeletal History: Reports: Arthritis, Osteoarthritis Neurological History: Reports: CVA - Past Surgical History Other HEENT Surgeries/Procedures: HYSTERECTOMY. CABBAGE X3 2 YEARS AGO GI Surgical History: Reports: None Neurological Surgical History: Reports: None Musculoskeletal Surgical History: Reports: Knee Replacement Social & Family History - Family History Hematologic: Reports: None - Tobacco Use Smoking Status *Q: Never Smoker Second Hand Smoke Exposure: Yes - Caffeine Use Caffeine Use: Reports: Coffee - Alcohol Use Days Per Week of Alcohol Use: 0 - Recreational Drug Use Recreational Drug Use: No - Living Situation & Occupation Living situation: Reports: , with Family, Other (daughter is the caregiver for both parents.) Occupation: Retired ED ROS GENERAL - Review of Systems Review Of Systems: See Below Constitutional: Reports: No Symptoms HEENT: Reports: No Symptoms Respiratory: Reports: No Symptoms Cardiovascular: Reports: No Symptoms GI/Abdominal: Reports: No Symptoms : Reports: Incontinence. Denies: Dysuria, Frequency Musculoskeletal: Reports: No Symptoms Skin: Reports: No Symptoms Neurological: Reports: No Symptoms Psychiatric: Reports: Confusion ED EXAM, RENAL/ - Physical Exam Exam: See Below Exam Limited By: Altered Mental Status General Appearance: No Apparent Distress Ears: Normal External Exam, Normal Canal, Normal TMs Nose: Normal Inspection Throat/Mouth: Normal Inspection, Normal Oropharynx, Normal Voice Head: Atraumatic, Normocephalic Neck: Normal Inspection, Supple, Non-Tender Respiratory/Chest: No Respiratory Distress, Lungs Clear, Normal Breath Sounds Cardiovascular: Regular Rate, Rhythm, No Edema GI/Abdominal: Normal Bowel Sounds, Soft, Non-Tender Back Exam: Normal Inspection Extremities: Normal Inspection, No Pedal Edema, Normal Capillary Refill Neurological: Alert, Confused, Other (grasps are equal bilaterally, moves lower extremities equally.) Skin Exam: Warm, Dry, Intact Course - Vital Signs Last Recorded V/S: Last Vital Signs Temp 97.6 F 09/27/17 19:04 Pulse 100 09/27/17 19:04 Resp 18 09/27/17 19:04 BP 156/74 H 09/27/17 21:15 Pulse Ox 100 09/27/17 19:04 - Orders/Labs/Meds Orders: Medication Orders Acetaminophen (Tylenol Extra Strength) 500 mg PO Q6H PRN PRN Reason: pain Dipyridamole/Aspirin (Aggrenox 200-25 Mg) 1 cap PO DAILY [facility] Docusate Sodium (Colace) 100 mg PO BID [facility] Last Admin: 09/27/17 21:17 Dose: 100 mg Enoxaparin Sodium (Lovenox) 30 mg SUBCUT Q24H [facility] Last Admin: 09/27/17 21:15 Dose: 30 mg Hydralazine HCl (Apresoline) 25 mg PO BID [facility] Last Admin: 09/27/17 21:15 Dose: 25 mg Levofloxacin/Dextrose 500 mg/ (Premix) 100 mls @ 100 mls/hr IV Q24H [facility] Last Admin: 09/27/17 21:12 Dose: 100 mls/hr Sodium Chloride (Normal Saline) 1,000 mls @ 100 mls/hr IV ASDIRECTED [facility] Last Admin: 09/27/17 21:11 Dose: 100 mls/hr Levothyroxine Sodium (Synthroid) 100 mcg PO DAILY [facility] Non-Formulary Medication (Carboxymethylcellulose Sodium [Refresh Tears 0.5%]) 1 drop OP ASDIRECTED PRN PRN Reason: Dry Eyes Non-Formulary Medication (Cyclosporine [Restasis]) 1 drop EYEBOTH BID [facility] Sodium Chloride (Saline Flush) 10 ml FLUSH ASDIRECTED PRN PRN Reason: Keep Vein Open Meds: Medications Generic Name Dose Route Start Last Admin Trade Name Freq PRN Reason Stop Dose Admin Acetaminophen 500 mg 09/27/17 20:33 Tylenol Extra Strength PO Q6H PRN pain Dipyridamole/Aspirin 1 cap 09/28/17 08:00 Aggrenox 200-25 Mg PO DAILY [facility] Docusate Sodium 100 mg 09/27/17 20:33 09/27/17 21:17 Colace PO 100 mg BID [facility] Administration Enoxaparin Sodium 30 mg 09/27/17 20:33 09/27/17 21:15 Lovenox SUBCUT 30 mg Q24H [facility] Administration Hydralazine HCl 25 mg 09/27/17 20:33 09/27/17 21:15 Apresoline PO 25 mg BID [facility] Administration Levofloxacin/Dextrose 500 mg/ 100 mls @ 100 mls/hr 09/27/17 20:00 09/27/17 21 :12 Premix IV 100 mls/hr Q24H [facility] Administration Sodium Chloride 1,000 mls @ 100 mls/hr 09/27/17 20:33 09/27/17 21:11 Normal Saline IV 100 mls/hr ASDIRECTED [facility] Administration Levothyroxine Sodium 100 mcg 09/28/17 08:00 Synthroid PO DAILY [facility] Non-Formulary Medication 1 drop 09/27/17 20:33 Carboxymethylcellulose Sodium [Refresh Tears 0.5%] OP ASDIRECTED PRN Dry Eyes Non-Formulary Medication 1 drop 09/28/17 08:00 Cyclosporine [Restasis] EYEBOTH BID [facility] Sodium Chloride 10 ml 09/27/17 20:33 Saline Flush FLUSH ASDIRECTED PRN Keep Vein Open Discontinued Medications Generic Name Dose Route Start Last Admin Trade Name Freq PRN Reason Stop Dose Admin Acetaminophen 650 mg 09/27/17 20:33 Tylenol PO Q4H PRN Pain (Mild 1-3)/fever Departure - Departure Time of Disposition: 19:40 Disposition: Admitted As Inpatient 66 Condition: Fair Clinical Impression: Dehydration UTI (urinary tract infection) Qualifiers: Urinary tract infection type: acute cystitis Hematuria presence: without hematuria Qualified Code(s): N30.00 - Acute cystitis without hematuria - Discharge Information - Problem List & Annotations (1) UTI (urinary tract infection) SNOMED Code(s): 82743166 Code(s): N39.0 - URINARY TRACT INFECTION, SITE NOT SPECIFIED Status: Acute Current Visit: Yes Qualifiers: Urinary tract infection type: acute cystitis Hematuria presence: without hematuria Qualified Code(s): N30.00 - Acute cystitis without hematuria (2) Dehydration SNOMED Code(s): 94329714 Code(s): E86.0 - DEHYDRATION Status: Acute Current Visit: Yes (3) Dementia SNOMED Code(s): 09280916 Code(s): F03.90 - UNSPECIFIED DEMENTIA WITHOUT BEHAVIORAL DISTURBANCE Status: Chronic Priority: High Current Visit: No - Problem List Review Problem List Initiated/Reviewed/Updated: Yes - Assessment/Plan Admission H&P: Please use this note as an admission H&P Plan: Did discuss case with Dr Snell and he agrees with admission of the pt.
[2017-09-27] MEDS ORDERED: Non-Formulary Medication 1 Each (Carboxymethylcellulose Sodium [Refresh Tears 0.5%] 1 DROP OP PRN (20:33)
[2017-09-27] MEDS ORDERED: Sodium Chloride 0.9% 10 ML Syringe FLUSH PRN (20:33)
[2017-09-27] MEDS ORDERED: Acetaminophen 325 MG Tab PO PRN (20:33)
[2017-09-27 21:10] LABS: CHLORIDE,CL 101 mEq/L (98-106); SODIUM,NA 136 mEq/L (136-145)
[2017-09-27] MEDS: Sodium Chloride 0.9% 1,000 ML IV SCH (21:11)
[2017-09-27] MEDS: Levofloxacin/Dextrose 5%-Water 500 MG in Premix Bag 1 BAG IV SCH (21:12)
[2017-09-27] MEDS: hydrALAZINE 25 MG Tab PO SCH (21:15)
[2017-09-27] MEDS: Enoxaparin 30 MG/0.3 ML Syringe SUBCUT SCH (21:15)
[2017-09-27] MEDS: Docusate Sodium 100 MG Cap PO SCH (21:17)
[2017-09-28] MEDS: hydrALAZINE 25 MG Tab PO SCH ×2 (07:27→20:27)
[2017-09-28] MEDS: Levothyroxine 100 MCG Tab PO SCH (07:28)
[2017-09-28] MEDS: Docusate Sodium 100 MG Cap PO SCH ×2 (07:29→20:27)
[2017-09-28] MEDS: Aspirin/Dipyridamole 200-25 MG Cap.ER PO SCH (07:29)
[2017-09-28] MEDS: Sodium Chloride 0.9% 1,000 ML IV SCH ×2 (07:31→18:40)
[2017-09-28] MEDS ORDERED: Non-Formulary Medication 1 Each (Cyclosporine [Restasis] 1 DROP) EYEBOTH SCH (08:00)
--- NOTE | 2017-09-28 10:39 | PN ---
DATE: 09/28/2017 S: This is an elderly female who came in with significant confusion, unable to ambulate with UTI. She has been now started on IV antibiotics. O: GENERAL: The patient was somewhat confused. NECK: Supple. CHEST: Clear. CARDIAC: Regular. ABDOMEN: Soft. ASSESSMENT: 1. URINARY TRACT INFECTION. 2. DEMENTIA. P: Continue IV antibiotics. Discussed possible snf with the family. BILLY /[id number]
[2017-09-28] MEDS: Nystatin Ointment 15 GM Tube TOP PRN (18:40)
[2017-09-28] MEDS: Enoxaparin 30 MG/0.3 ML Syringe SUBCUT SCH (20:27)
[2017-09-28] MEDS: Levofloxacin/Dextrose 5%-Water 500 MG in Premix Bag 1 BAG IV SCH (20:31)
[2017-09-29] MEDS: Sodium Chloride 0.9% 1,000 ML IV SCH ×2 (05:42→17:30)
[2017-09-29] MEDS: Docusate Sodium 100 MG Cap PO SCH ×2 (07:30→20:06)
[2017-09-29] MEDS: Aspirin/Dipyridamole 200-25 MG Cap.ER PO SCH (07:30)
[2017-09-29] MEDS: Levothyroxine 100 MCG Tab PO SCH (07:30)
[2017-09-29] MEDS: hydrALAZINE 25 MG Tab PO SCH ×2 (07:32→20:05)
[2017-09-29] MEDS: Nystatin Ointment 15 GM Tube TOP PRN ×2 (07:34→20:06)
--- NOTE | 2017-09-29 12:58 | PCM.PN ---
- General Info Date of Service: 09/29/17 (Labs, I&O reviewed. Will educe IV to 50/hr. Repeat labs in AM.) Admission Dx/Problem (Free Text): UTI, dementia Functional Status: Reports: Pain Controlled - Review of Systems General: Reports: No Symptoms HEENT: Reports: No Symptoms Pulmonary: Reports: No Symptoms Cardiovascular: Reports: No Symptoms Gastrointestinal: Reports: No Symptoms Genitourinary: Reports: No Symptoms Musculoskeletal: Reports: No Symptoms - Patient Data Vitals - Most Recent: Last Vital Signs Temp 98.7 F 09/29/17 08:00 Pulse 86 09/29/17 08:00 Resp 18 09/29/17 08:00 BP 182/81 H 09/29/17 08:00 Pulse Ox 96 09/29/17 08:00 Weight - Most Recent: 164 lb 4.8 oz I&O - Last 24 Hours: Intake & Output 09/28/17 09/29/17 09/29/17 22:59 06:59 14:59 Intake Total 1265 1200 Balance 1265 1200 Med Orders - Current: Current Medications Acetaminophen (Tylenol Extra Strength) 500 mg PO Q6H PRN PRN Reason: pain Dipyridamole/Aspirin (Aggrenox 200-25 Mg) 1 cap PO DAILY [facility] Last Admin: 09/29/17 07:30 Dose: 1 cap Docusate Sodium (Colace) 100 mg PO BID [facility] Last Admin: 09/29/17 07:30 Dose: 100 mg Enoxaparin Sodium (Lovenox) 30 mg SUBCUT Q24H [facility] Last Admin: 09/28/17 20:27 Dose: 30 mg Hydralazine HCl (Apresoline) 25 mg PO BID [facility] Last Admin: 09/29/17 07:32 Dose: 25 mg Levofloxacin/Dextrose 500 mg/ (Premix) 100 mls @ 100 mls/hr IV Q24H [facility] Last Admin: 09/28/17 20:31 Dose: 100 mls/hr Sodium Chloride (Normal Saline) 1,000 mls @ 50 mls/hr IV ASDIRECTED [facility] Levothyroxine Sodium (Synthroid) 100 mcg PO DAILY [facility] Last Admin: 09/29/17 07:30 Dose: 100 mcg Non-Formulary Medication (Carboxymethylcellulose Sodium [Refresh Tears 0.5%]) 1 drop OP ASDIRECTED PRN PRN Reason: Dry Eyes Non-Formulary Medication (Cyclosporine [Restasis]) 1 drop EYEBOTH BID [facility] Nystatin (Nystatin Ointment) 1 gm TOP TID PRN PRN Reason: Wound Care Last Admin: 09/29/17 07:34 Dose: 1 applic Sodium Chloride (Saline Flush) 10 ml FLUSH ASDIRECTED PRN PRN Reason: Keep Vein Open Discontinued Medications Acetaminophen (Tylenol) 650 mg PO Q4H PRN PRN Reason: Pain (Mild 1-3)/fever Sodium Chloride (Normal Saline) 1,000 mls @ 100 mls/hr IV ASDIRECTED [facility] Last Admin: 09/29/17 05:42 Dose: 100 mls/hr - Problem List Review Problem List Initiated/Reviewed/Updated: Yes - My Orders Last 24 Hours: My Active Orders 09/29/17 12:50 Sodium Chloride 0.9% [Normal Saline] 1,000 ml IV ASDIRECTED 09/30/17 05:00 CBC W/O DIFF,HEMOGRAM [HEME] Routine CMP [COMPREHENSIVE METABOLIC PN,CMP] [CHEM] Routine - Plan Plan:: Will reduce IV fluid to 50/hr. Repeat lab work in AM. Continue with current antibiotic therapy.
[2017-09-29] MEDS: Enoxaparin 30 MG/0.3 ML Syringe SUBCUT SCH (20:05)
[2017-09-29] MEDS: Acetaminophen 500 MG Tab PO PRN (20:06)
[2017-09-29] MEDS: Levofloxacin/Dextrose 5%-Water 500 MG in Premix Bag 1 BAG IV SCH (20:08)
[2017-09-30] MEDS: hydrALAZINE 25 MG Tab PO SCH ×2 (07:31→19:56)
[2017-09-30] MEDS: Levothyroxine 100 MCG Tab PO SCH (07:31)
[2017-09-30] MEDS: Aspirin/Dipyridamole 200-25 MG Cap.ER PO SCH (07:31)
[2017-09-30] MEDS: Docusate Sodium 100 MG Cap PO SCH ×2 (07:31→19:56)
[2017-09-30] MEDS: Nystatin Ointment 15 GM Tube TOP PRN (07:31)
[2017-09-30] MEDS: Acetaminophen 500 MG Tab PO PRN ×2 (07:32→16:37)
[2017-09-30] MEDS ORDERED: Polyethylene Glycol 3350 Powder 17 GM Packet PO PRN (08:35)
[2017-09-30] MEDS: Sodium Chloride 0.9% 1,000 ML IV SCH (13:51)
--- NOTE | 2017-09-30 14:16 | PCM.PN ---
- General Info Date of Service: 09/30/17 (Sitting up in chair watching tv. Family at bedside. Denies any pain or sob at this time vs are stable and lab work is WNL.) Functional Status: Reports: Pain Controlled - Review of Systems General: Reports: No Symptoms HEENT: Reports: No Symptoms Pulmonary: Reports: No Symptoms Cardiovascular: Reports: No Symptoms Gastrointestinal: Reports: No Symptoms Genitourinary: Reports: No Symptoms Musculoskeletal: Reports: No Symptoms Skin: Reports: No Symptoms Neurological: Reports: No Symptoms Psychiatric: Reports: Confusion - Patient Data Vitals - Most Recent: Last Vital Signs Temp 99.3 F 09/30/17 12:00 Pulse 99 09/30/17 12:00 Resp 19 09/30/17 12:00 BP 155/79 H 09/30/17 12:00 Pulse Ox 94 L 09/30/17 12:00 Weight - Most Recent: 166 lb 3.2 oz I&O - Last 24 Hours: Intake & Output 09/29/17 09/30/17 09/30/17 22:59 06:59 14:59 Intake Total 371 283 6767 Output Total 0 275 Balance 600 100 725 Lab Results Last 24 Hours: Laboratory Results - last 24 hr 09/30/17 09/30/17 Range/Units 07:15 07:15 WBC 8.4 (5.0-10.0) 10^3/uL RBC 3.65 L (4.00-5.50) 10^6/uL Hgb 11.8 L (12.0-16.0) g/dL Hct 35.4 L (37.0-47.0) % MCV 97.0 H (82.0-94.0) fL MCH 32.3 H (27.0-32.0) pg MCHC 33.3 (33.0-38.0) g/dL RDW Coeff of Gina 14.3 (11.0-15.0) % Plt Count 221 (150-400) 10^3/uL MPV 8.4 fL Sodium 141 (136-145) mEq/L Potassium 3.7 (3.5-5.0) mEq/L Chloride 106 (98-106) mEq/L Carbon Dioxide 22 (21-32) mmol/L BUN 18 (7-18) mg/dL Creatinine 1.2 H (0.6-1.0) mg/dL Est Cr Clr Drug Dosing 27.32 mL/min Estimated GFR (MDRD) 42 L (>=60) mL/min Glucose 127 H (75-99) mg/dL Calcium 8.9 (8.4-10.1) mg/dL Total Bilirubin 0.4 (0.0-1.0) mg/dL AST 23 (15-37) U/L ALT 25 (12-78) U/L Alkaline Phosphatase 43 L (46-116) U/L Total Protein 6.6 (6.4-8.2) g/dL Albumin 3.3 L (3.4-5.0) g/dL Med Orders - Current: Current Medications Acetaminophen (Tylenol Extra Strength) 500 mg PO Q6H PRN PRN Reason: pain Last Admin: 09/30/17 07:32 Dose: 500 mg Dipyridamole/Aspirin (Aggrenox 200-25 Mg) 1 cap PO DAILY [facility] Last Admin: 09/30/17 07:31 Dose: 1 cap Docusate Sodium (Colace) 100 mg PO BID [facility] Last Admin: 09/30/17 07:31 Dose: 100 mg Enoxaparin Sodium (Lovenox) 30 mg SUBCUT Q24H [facility] Last Admin: 09/29/17 20:05 Dose: 30 mg Hydralazine HCl (Apresoline) 25 mg PO BID [facility] Last Admin: 09/30/17 07:31 Dose: 25 mg Levofloxacin/Dextrose 500 mg/ (Premix) 100 mls @ 100 mls/hr IV Q24H [facility] Last Admin: 09/29/17 20:08 Dose: 100 mls/hr Sodium Chloride (Normal Saline) 1,000 mls @ 50 mls/hr IV ASDIRECTED [facility] Last Admin: 09/30/17 13:51 Dose: 50 mls/hr Levothyroxine Sodium (Synthroid) 100 mcg PO DAILY [facility] Last Admin: 09/30/17 07:31 Dose: 100 mcg Non-Formulary Medication (Carboxymethylcellulose Sodium [Refresh Tears 0.5%]) 1 drop OP ASDIRECTED PRN PRN Reason: Dry Eyes Non-Formulary Medication (Cyclosporine [Restasis]) 1 drop EYEBOTH BID [facility] Nystatin (Nystatin Ointment) 1 gm TOP TID PRN PRN Reason: Wound Care Last Admin: 09/30/17 07:31 Dose: 1 applic Polyethylene Glycol (Miralax) 17 gm PO ONETIME PRN PRN Reason: Constipation Last Admin: 09/30/17 09:07 Dose: 17 gm Sodium Chloride (Saline Flush) 10 ml FLUSH ASDIRECTED PRN PRN Reason: Keep Vein Open Discontinued Medications Acetaminophen (Tylenol) 650 mg PO Q4H PRN PRN Reason: Pain (Mild 1-3)/fever Sodium Chloride (Normal Saline) 1,000 mls @ 100 mls/hr IV ASDIRECTED [place]TT Last Admin: 09/29/17 05:42 Dose: 100 mls/hr - Problem List Review Problem List Initiated/Reviewed/Updated: Yes - My Orders Last 24 Hours: My Active Orders 09/30/17 08:35 Polyethylene Glycol 3350 [MiraLAX] 17 gm PO ONETIME PRN - Plan Plan:: Will reduce IV fluid to 50/hr. Repeat lab work in AM. Continue with current antibiotic therapy.
[2017-09-30] MEDS: Enoxaparin 30 MG/0.3 ML Syringe SUBCUT SCH (19:56)
[2017-09-30] MEDS: Levofloxacin/Dextrose 5%-Water 500 MG in Premix Bag 1 BAG IV SCH (19:57)
[2017-10-01 07:25] VITALS: BP 166/72
[2017-10-01] MEDS: Docusate Sodium 100 MG Cap PO SCH (07:37)
[2017-10-01] MEDS: hydrALAZINE 25 MG Tab PO SCH (07:37)
[2017-10-01] MEDS: Aspirin/Dipyridamole 200-25 MG Cap.ER PO SCH (07:37)
[2017-10-01] MEDS: Levothyroxine 100 MCG Tab PO SCH (07:37)
--- NOTE | 2017-10-02 07:53 | DISCH ---
This is an elderly white female who came in, markedly confused from UTI. She was started on intravenous antibiotics and difficult progressive dementia. I talked to the daughter, who is the adjunct physics instructor, and she decided [facility], OT, and see how she does. Discharge medications as are here in the hospital. CBC looked normal. Hemoglobin dropped a little due to dilutional. Panel 8 showed creatinine 1.5. Urine was done through emergency room. Otherwise everything looked good. DISCHARGE MEDICATIONS: Per chart. DISCHARGE DIAGNOSIS: 1. UTI. 2. Dehydration. 3. HYPERTENSION. 4. ALZHEIMER DEMENTIA. MARQUES/ROSANNA /[id number]
== END 2017-10-01 10:20 | DRG 690 ==
LOC: CC.ED 19:00 → UNDOADMIN 19:55 → CC.MS 19:55
PROVIDERS: ADMIT Physician Assistant Medical; ATTEND General Practice
DX: N39.0 Urinary tract infection, site not specified (principal); E86.0 Dehydration; F03.90 Unspecified dementia, unspecified severity, without behavioral disturbance, psychotic disturbance, mood disturbance, and anxiety; G30.9 Alzheimer's disease, unspecified; F02.80 Dementia in other diseases classified elsewhere, unspecified severity, without behavioral disturbance, psychotic disturbance, mood disturbance, and anxiety; I10 Essential (primary) hypertension; Z87.440 Personal history of urinary (tract) infections; M19.90 Unspecified osteoarthritis, unspecified site; Z86.73 Personal history of transient ischemic attack (TIA), and cerebral infarction without residual deficits; H54.7 Unspecified visual loss; E73.9 Lactose intolerance, unspecified; Z88.2 Allergy status to sulfonamides; Z88.8 Allergy status to other drugs, medicaments and biological substances; Z91.040 Latex allergy status; Z79.82 Long term (current) use of aspirin; Z79.899 Other long term (current) drug therapy
CPT/HCPCS: 36415; 80053; 84484; 85025; 85027; 85651; 86140; 97110-GP; 97163-GP; 99285; A9270-GY; J1650; J1956; J7030